=== PATIENT | female | born 1950 | race Caucasian/White ===

== ENCOUNTER 2021-02-20 09:24 | Observation (INO) | payer MEDICARE, OTHER ==
[2021-02-20] MEDS ORDERED: ALBUTEROL HFA INHALER INHALATION STA (09:41)
--- NOTE | 2021-02-20 09:44 | ED ---
General Adult HPI - General Chief complaint: Shortness of Breath Stated complaint: Chest Pain/DALY Time Seen by Provider: 02/20/21 09:25 Source: patient, RN notes reviewed, old records reviewed Mode of arrival: wheelchair Limitations: no limitations - History of Present Illness Initial comments: This is a 70-year-old female presents emergency department stating that she is here because of shortness of breath for the last 3 weeks. Patient states she's also had chest heaviness since Tuesday. Patient states she has a history of smoking but did quit 10 years ago. Patient states she did get the COVID vaccine but is never been diagnosed with COVID. Patient denies any swelling to the legs or calf tenderness. Patient denies any palpitations. Patient denies lightheadedness or dizziness. Patient denies any abdominal pain patient denies nausea vomiting diarrhea. Patient states the difficulty breathing gets much worse with any exertion. Patient states she did have a cough about a week ago but hasn't been coughing much recently. - Related Data Home Medications Medication Instructions Recorded Confirmed Carvedilol [Coreg] 3.125 mg PO BID 02/20/21 02/20/21 Dexlansoprazole [Dexilant] 60 mg PO DAILY 02/20/21 02/20/21 Healthy Legs And Feet (Otc) 1 tab PO BID 02/20/21 02/20/21 Meloxicam [Mobic] 7.5 mg PO BID 02/20/21 02/20/21 Potassium Chloride [Potassium 10 meq PO DAILY 02/20/21 02/20/21 Chloride ER] Rosuvastatin Calcium 5 mg PO HS 02/20/21 02/20/21 hydroCHLOROthiazide [Hydrodiuril] 25 mg PO DAILY 02/20/21 02/20/21 traZODone HCL 100 mg PO HS 02/20/21 02/20/21 Allergies Allergy/AdvReac Type Severity Reaction Status Date / Time No Known Allergies Allergy Verified 02/20/21 10:55 Review of Systems ROS Statement: Those systems with pertinent positive or pertinent negative responses have been documented in the HPI. ROS Other: All systems not noted in ROS Statement are negative. Past Medical History Past Medical History: Chest Pain / Angina History of Any Multi-Drug Resistant Organisms: None Reported Past Surgical History: Cholecystectomy Additional Past Surgical History / Comment(s): colonoscopy Past Psychological History: No Psychological Hx Reported Smoking Status: Never smoker Past Alcohol Use History: None Reported Past Drug Use History: None Reported General Exam - General Exam Comments Initial Comments: GENERAL: Patient is well-developed and well-nourished. Patient is nontoxic and well- hydrated and is in mild distress. ENT: Neck is soft and supple. No significant lymphadenopathy is noted. Oropharynx is clear. Moist mucous membranes. Neck has full range of motion without eliciting any pain. EYES: The sclera were anicteric and conjunctiva were pink and moist. Extraocular movements were intact and pupils were equal round and reactive to light. Eyelids were unremarkable. PULMONARY: Patient has expiratory wheezing CARDIOVASCULAR: There is a regular rate and rhythm without any murmurs gallops or rubs. ABDOMEN: Soft and nontender with normal bowel sounds. SKIN: Skin is clear with no lesions or rashes and otherwise unremarkable. NEUROLOGIC: Patient is alert and oriented x3. Cranial nerves II through XII are grossly intact. Motor and sensory are also intact. Normal speech, volume and content. Symmetrical smile. Cerebellar exam grossly intact. MUSCULOSKELETAL: Normal extremities with adequate strength and full range of motion. No lower extremity swelling or edema. No calf tenderness. LYMPHATICS: No significant lymphadenopathy is noted PSYCHIATRIC: Normal psychiatric evaluation. Normal interpersonal interactions appears functionally intact in deals appropriately with others. No signs of depression. No signs of anxiety. Limitations: no limitations Course Vital Signs 02/20/21 02/20/21 02/20/21 09:24 12:25 13:41 Temperature 97.9 F Pulse Rate 80 77 86 Respiratory 20 18 Rate Blood Pressure 152/95 105/79 O2 Sat by Pulse 95 96 Oximetry 02/20/21 13:55 Temperature Pulse Rate 80 Respiratory Rate Blood Pressure O2 Sat by Pulse Oximetry Medical Decision Making - Medical Decision Making EKG shows normal sinus rhythm at 73 bpm [place] interval 152 QRS is 86 QT interval 362 QTC is 398. Patient's EKG shows no ST segment elevation or depression. Chest x-ray shows no acute abnormality. Patient received an albuterol treatments steroids and antibiotics. Patient was oxygenating at 94% on room air and ambulated without lowering her oxygen level. Patient's oxygenation dropped after she rested given another breathing treatment but she continued to drop down to 88% on room air so I admitted the patient. I spoke with Dr. Roy he agreed to admit the patient and the patient wrote admitting orders. - Lab Data Result diagrams: 02/20/21 10:13 02/20/21 10:13 Lab Results 02/20/21 02/20/21 02/20/21 Range/Units 10:13 10:13 10:13 WBC 7.8 (3.8-10.6) k/uL RBC 4.47 (3.80-5.40) m/uL Hgb 13.2 (11.4-16.0) gm/dL Hct 40.4 (34.0-46.0) % MCV 90.4 (80.0-100.0) fL MCH 29.5 (25.0-35.0) pg MCHC 32.7 (31.0-37.0) g/dL RDW 14.3 (11.5-15.5) % Plt Count 252 (150-450) k/uL MPV 8.7 Neutrophils % 72 % Lymphocytes % 17 % Monocytes % 4 % Eosinophils % 5 % Basophils % 1 % Neutrophils # 5.6 (1.3-7.7) k/uL Lymphocytes # 1.3 (1.0-4.8) k/uL Monocytes # 0.3 (0-1.0) k/uL Eosinophils # 0.4 (0-0.7) k/uL Basophils # 0.0 (0-0.2) k/uL PT 10.0 (9.0-12.0) sec INR 0.9 (<1.2) APTT 21.7 L (22.0-30.0) sec D-Dimer 0.53 (<0.60) mg/L FEU Sodium (137-145) mmol/L Potassium (3.5-5.1) mmol/L Chloride (98-107) mmol/L Carbon Dioxide (22-30) mmol/L Anion Gap mmol/L BUN (7-17) mg/dL Creatinine (0.52-1.04) mg/dL Est GFR (CKD-EPI)AfAm (>60 ml/min/1.73 sqM) Est GFR (CKD-EPI)NonAf (>60 ml/min/1.73 sqM) Glucose (74-99) mg/dL Plasma Lactic Acid Estuardo (0.7-2.0) mmol/L Calcium (8.4-10.2) mg/dL Total Bilirubin (0.2-1.3) mg/dL AST (14-36) U/L ALT (4-34) U/L Alkaline Phosphatase (38-126) U/L Troponin I (0.000-0.034) ng/mL NT-Pro-B Natriuret Pep pg/mL Total Protein (6.3-8.2) g/dL Albumin (3.5-5.0) g/dL Urine Color Urine Appearance (Clear) Urine pH (5.0-8.0) Ur Specific [place] (1.001-1.035) Urine Protein (Negative) Urine Glucose (UA) (Negative) Urine Ketones (Negative) Urine Blood (Negative) Urine Nitrite (Negative) Urine Bilirubin (Negative) Urine Urobilinogen (<2.0) mg/dL Ur Leukocyte Esterase (Negative) Coronavirus (PCR) Not Detected (Not Detectd) 02/20/21 02/20/21 02/20/21 Range/Units 10:13 10:13 10:13 WBC (3.8-10.6) k/uL RBC (3.80-5.40) m/uL Hgb (11.4-16.0) gm/dL Hct (34.0-46.0) % MCV (80.0-100.0) fL MCH (25.0-35.0) pg MCHC (31.0-37.0) g/dL RDW (11.5-15.5) % Plt Count (150-450) k/uL MPV Neutrophils % % Lymphocytes % % Monocytes % % Eosinophils % % Basophils % % Neutrophils # (1.3-7.7) k/uL Lymphocytes # (1.0-4.8) k/uL Monocytes # (0-1.0) k/uL Eosinophils # (0-0.7) k/uL Basophils # (0-0.2) k/uL PT (9.0-12.0) sec INR (<1.2) APTT (22.0-30.0) sec D-Dimer (<0.60) mg/L FEU Sodium 137 (137-145) mmol/L Potassium 4.1 (3.5-5.1) mmol/L Chloride 97 L (98-107) mmol/L Carbon Dioxide 30 (22-30) mmol/L Anion Gap 10 mmol/L BUN 16 (7-17) mg/dL Creatinine 0.63 (0.52-1.04) mg/dL Est GFR (CKD-EPI)AfAm >90 (>60 ml/min/1.73 sqM) Est GFR (CKD-EPI)NonAf 90 (>60 ml/min/1.73 sqM) Glucose 161 H (74-99) mg/dL Plasma Lactic Acid Estuardo 1.2 (0.7-2.0) mmol/L Calcium 10.0 (8.4-10.2) mg/dL Total Bilirubin 0.3 (0.2-1.3) mg/dL AST 39 H (14-36) U/L ALT 44 H (4-34) U/L Alkaline Phosphatase 87 (38-126) U/L Troponin I <0.012 (0.000-0.034) ng/mL NT-Pro-B Natriuret Pep pg/mL Total Protein 7.1 (6.3-8.2) g/dL Albumin 4.0 (3.5-5.0) g/dL Urine Color Urine Appearance (Clear) Urine pH (5.0-8.0) Ur Specific [place] (1.001-1.035) Urine Protein (Negative) Urine Glucose (UA) (Negative) Urine Ketones (Negative) Urine Blood (Negative) Urine Nitrite (Negative) Urine Bilirubin (Negative) Urine Urobilinogen (<2.0) mg/dL Ur Leukocyte Esterase (Negative) Coronavirus (PCR) (Not Detectd) 02/20/21 02/20/21 Range/Units 10:13 13:16 WBC (3.8-10.6) k/uL RBC (3.80-5.40) m/uL Hgb (11.4-16.0) gm/dL Hct (34.0-46.0) % MCV (80.0-100.0) fL MCH (25.0-35.0) pg MCHC (31.0-37.0) g/dL RDW (11.5-15.5) % Plt Count (150-450) k/uL MPV Neutrophils % % Lymphocytes % % Monocytes % % Eosinophils % % Basophils % % Neutrophils # (1.3-7.7) k/uL Lymphocytes # (1.0-4.8) k/uL Monocytes # (0-1.0) k/uL Eosinophils # (0-0.7) k/uL Basophils # (0-0.2) k/uL PT (9.0-12.0) sec INR (<1.2) APTT (22.0-30.0) sec D-Dimer (<0.60) mg/L FEU Sodium (137-145) mmol/L Potassium (3.5-5.1) mmol/L Chloride (98-107) mmol/L Carbon Dioxide (22-30) mmol/L Anion Gap mmol/L BUN (7-17) mg/dL Creatinine (0.52-1.04) mg/dL Est GFR (CKD-EPI)AfAm (>60 ml/min/1.73 sqM) Est GFR (CKD-EPI)NonAf (>60 ml/min/1.73 sqM) Glucose (74-99) mg/dL Plasma Lactic Acid Estuardo (0.7-2.0) mmol/L Calcium (8.4-10.2) mg/dL Total Bilirubin (0.2-1.3) mg/dL AST (14-36) U/L ALT (4-34) U/L Alkaline Phosphatase (38-126) U/L Troponin I (0.000-0.034) ng/mL NT-Pro-B Natriuret Pep 123 pg/mL Total Protein (6.3-8.2) g/dL Albumin (3.5-5.0) g/dL Urine Color Yellow Urine Appearance Clear (Clear) Urine pH 7.5 (5.0-8.0) Ur Specific [place] 1.009 (1.001-1.035) Urine Protein Negative (Negative) Urine Glucose (UA) Negative (Negative) Urine Ketones Negative (Negative) Urine Blood Negative (Negative) Urine Nitrite Negative (Negative) Urine Bilirubin Negative (Negative) Urine Urobilinogen <2.0 (<2.0) mg/dL Ur Leukocyte Esterase Negative (Negative) Coronavirus (PCR) (Not Detectd) Disposition Clinical Impression: Acute exacerbation of chronic obstructive pulmonary disease Disposition: ADMITTED IP TO THIS HOSP Referrals: Nonstaff,Physician [Primary Care Provider] - 1-2 days Time of Disposition: 13:07
[2021-02-20 10:40] LABS: Basophils % (A) 1 %; Eosinophils # (A) 0.4 k/uL (0-0.7); Eosinophils % (A) 5 %; HCT 40.4 % (34.0-46.0); HGB 13.2 gm/dL (11.4-16.0); Lymphocytes # (A) 1.3 k/uL (1.0-4.8); Lymphocytes % (A) 17 %; MCH 29.5 pg (25.0-35.0); MCHC 32.7 g/dL (31.0-37.0); MCV 90.4 fL (80.0-100.0); Mean Platelet Volume 8.7; Monocytes # (A) 0.3 k/uL (0-1.0); Monocytes % (A) 4 %; Neutrophils # (A) 5.6 k/uL (1.3-7.7); Neutrophils % (A) 72 %; Platelet Count 252 k/uL (150-450); RBC 4.47 m/uL (3.80-5.40); RDW 14.3 % (11.5-15.5); WBC 7.8 k/uL (3.8-10.6)
[2021-02-20 10:51] LABS: ALT 44 U/L (4-34); AST 39 U/L (14-36); African American GFR (CKD) >90 (>60 ml/min/1.73 sqM); Alkaline Phosphatase 87 U/L (38-126); Anion Gap 10 mmol/L; Blood Urea Nitrogen 16 mg/dL (7-17); Carbon Dioxide 30 mmol/L (22-30); Chloride 97 mmol/L (98-107); Glucose 161 mg/dL (74-99); Non-African American GFR(CKD) 90 (>60 ml/min/1.73 sqM); Potassium 4.1 mmol/L (3.5-5.1); Sodium 137 mmol/L (137-145); Total Bilirubin 0.3 mg/dL (0.2-1.3); Total Protein 7.1 g/dL (6.3-8.2)
[2021-02-20 11:03] LABS: INR 0.9 (<1.2)
[2021-02-20 11:13] LABS: Partial Thromboplastin Time 21.7 sec (22.0-30.0)
--- NOTE | 2021-02-20 12:10 | XR ---
EXAMINATION TYPE: XR chest 2V DATE OF EXAM: 02/20/2021 COMPARISON: None HISTORY: 70 year-old female shortness of breath, difficulty breathing TECHNIQUE: PA and lateral views FINDINGS: Heart appears mildly enlarged. Rightward patient rotation package wrapper myocardial mediastinal con tours. There is focal opacity at the medial right base. No pleural effusion. Cholecystectomy clips on the lateral view. IMPRESSION: 1. Rotated exam. There is mild cardiomegaly. 2. Focal patchy atelectasis versus early infiltrate at the medial right base.
[2021-02-20] MEDS ORDERED: methylPREDNISolone SOD SUCCI 125 MG/2 ML VIAL IV STA (12:33)
[2021-02-20] MEDS ORDERED: cefTRIAXone IN SWFI 1,000 MG/10 ML SYRINGE IVP STA (12:33)
[2021-02-20] MEDS ORDERED: IPRATROPIUM-ALBUTEROL 3 ML NEB INHALATION STA (13:18)
[2021-02-20 13:45] LABS: Appearance,Urine Clear (Clear); Bilirubin,Urine Negative (Negative); Blood,Urine Negative (Negative); Color,Urine Yellow; Glucose,Urine (UA) Negative (Negative); Ketones,Urine Negative (Negative); Leukocyte Esterase,Urine Negative (Negative); Nitrite,Urine Negative (Negative); PH, Urine 7.5 (5.0-8.0); Protein,Urine Negative (Negative); Specific Gravity,Urine 1.009 (1.001-1.035); Urobilinogen,Urine <2.0 mg/dL (<2.0)
--- NOTE | 2021-02-20 15:28 | P.HPIM ---
History of Present Illness H&P Date: 02/20/21 The patient is a 70-year-old female with a PMH of hypertension, hyperlipidemia and distant history of tobacco abuse (patient used to smoke as a teenager and smoked for roughly 10 years and never more than a few cigarettes a day) who presents to the emergency room with complaints of chest discomfort and shortness of breath. The patient reports that over the past 2 weeks, she has noticed gradually worsening exertional dyspnea, with associated exertional substernal pressure-like chest discomfort. She notes that the chest discomfort is nonradiating, 10 out of 10 at exertion, alleviates quickly with rest, without associated palpitations, nausea, vomiting, diaphoresis. She also reports gradually worsening lower extremity edema and gaining roughly 25 pounds over the past 2-3 weeks. She denied any history of heart disease. She also denied any history of COPD or having to use inhalers in the past. Denied cough, fever, chills, sick contacts. Reports that the breathing treatments in the emergency room did not really alleviate her symptoms. In the emergency room, chest x-ray revealed mild cardiomegaly with EKG showing normal sinus rhythm at 73 bpm with no acute ST/T-wave changes noted as reviewed by me. Laboratory evaluation was remarkable for troponin less than 0.012, proBNP 123, AST 39, ALT 44, UA unremarkable, coronavirus PCR negative, glucose 161, d-dimer 0.53, AST 39, ALT 44. Review of systems: Pertinent positives and negatives as discussed in HPI, a complete review of sys tems was performed and all other systems are negative. Physical examination: General: non toxic, no distress, appears at stated age, obese Derm: no unusual rashes/lesions no unusual ecchymoses, warm, dry Head: atraumatic, normocephalic, symmetric Eyes: EOMI, no lid lag, anicteric sclera, pupils equal round reactive to light ENT: Nose and ears atraumatic, no thrush, no pharyngeal erythema Neck: No thyromegaly, no cervical lymphadenopathy, trachea midline, supple Mouth: no lip lesion, mucus membranes moist Cardiovascular: S1S2 reg, no murmur, positive posterior tibial pulse bilateral, 1+ bilateral lower extremity pitting edema, capillary refill less than 2 seconds Lungs: Bibasilar rales, no wheezing, no accessory muscle use Abdominal: soft, nontender to palpation, no guarding, no appreciable organomegaly, normal bowel sounds Ext: no gross muscle atrophy, muscle strength 5 out of 5 in all 4 extremities grossly, no contractures, Neuro: CN II-XI grossly intact, light touch intact all 4 extremities, finger to nose within normal limits, Psych: Alert, oriented, appropriate affect Assessment/plan Shortness of breath, suspected cardiac in nature -proBNP wnl -Obtain echocardiogram -Cardiac monitoring -Cardiology consult -Intake output -Daily weights -Lasix IV for now Hyperglycemia -Check A1c Abnormal LFTs -May be secondary to congestion from fluid overload -Monitor for now Chronic conditions: Hyperlipidemia, hypertension -Continue with home meds DVT prophylaxis -Heparin subcu The patient is admitted with an anticipated greater than 2 midnight stay for evaluation of SOB CODE STATUS: Full Code Discussed with: Patient Anticipated discharge date: 2-[address]: Home Past Medical History Past Medical History: Chest Pain / Angina History of Any Multi-Drug Resistant Organisms: None Reported Past Surgical History: Cholecystectomy Additional Past Surgical History / Comment(s): colonoscopy Past Psychological History: No Psychological Hx Reported Smoking Status: Never smoker Past Alcohol Use History: None Reported Past Drug Use History: None Reported - Past Family History Father Family Medical History: Cancer Medications and Allergies Home Medications Medication Instructions Recorded Confirmed Type Carvedilol [Coreg] 3.125 mg PO BID 02/20/21 02/20/21 History Dexlansoprazole [Dexilant] 60 mg PO DAILY 02/20/21 02/20/21 History Healthy Legs And Feet (Otc) 1 tab PO BID 02/20/21 02/20/21 History Meloxicam [Mobic] 7.5 mg PO BID 02/20/21 02/20/21 History Potassium Chloride [Potassium 10 meq PO DAILY 02/20/21 02/20/21 History Chloride ER] Rosuvastatin Calcium 5 mg PO HS 02/20/21 02/20/21 History hydroCHLOROthiazide [Hydrodiuril] 25 mg PO DAILY 02/20/21 02/20/21 History traZODone HCL 100 mg PO HS 02/20/21 02/20/21 History Allergies Allergy/AdvReac Type Severity Reaction Status Date / Time No Known Allergies Allergy Verified 02/20/21 10:55 Physical Exam Vitals: Vital Signs Temp Pulse Resp BP Pulse Ox 02/20/21 14:52 82 18 160/91 97 11/12/21 13:55 80 02/20/21 13:41 86 02/20/21 12:25 77 18 105/79 96 02/20/21 09:24 97.9 F 80 20 152/95 95 Intake and Output 02/20/21 02/20/21 02/20/21 06:59 14:59 22:59 Other: Weight 99.79 kg Results CBC & Chem 7: 02/20/21 10:13 02/20/21 10:13 Labs: Abnormal Lab Results - Last 24 Hours (Table) 02/20/21 02/20/21 Range/Units 10:13 10:13 APTT 21.7 L (22.0-30.0) sec Chloride 97 L (98-107) mmol/L Glucose 161 H (74-99) mg/dL AST 39 H (14-36) U/L ALT 44 H (4-34) U/L
--- NOTE | 2021-02-20 17:28 | ECHOF ---
Referral Reason: MEASUREMENTS -------- HEIGHT: 160.0 cm WEIGHT: 99.8 kg BP: RVIDd: 2.6 cm (< 3.3) IVSd: 1.1 cm (0.6 - 1.1) LVIDd: 4.6 cm (3.9 - 5.3) LVPWd: 1.0 cm (0.6 - 1.1) IVSs: 1.8 cm LVIDs: 2.1 cm LVPWs: 1.5 cm Ao Diam: 3.2 cm (2.0 - 3.7) AV Cusp: 2.1 cm (1.5 - 2.6) LA Diam: 3.8 cm (2.7 - 3.8) MV EXCURSION: 10.955 mm (> 18.000) MV EF SLOPE: 67 mm/s (70 - 150) EPSS: 0.7 cm MV E Jori: 0.69 m/s MV DecT: 160 ms MV A Jori: 1.09 m/s MV E/A Ratio: 0.63 RAP: 5.00 mmHg RVSP: 13.64 mmHg FINDINGS -------- Sinus rhythm. This was a technically difficult study with suboptimal views. The left ventricular size is normal. Left ventricular wall thickness is normal. Overall left vent ricular systolic function is normal with, an EF between 55 - 60 %. The right ventricle is normal in size. The left atrial size is normal. The right atrial size is normal. The aortic valve was not well visualized. The mitral valve was not well visualized. Mild mitral regurgitation is present. The tricuspid valve was not well visualized. Mild tricuspid regurgitation present. Right ventricu lar systolic pressure is normal at < 35 mmHg. The pulmonic valve was not well visualized. There is no pulmonic regurgitation present. The aortic root size is normal. IVC Not well visulized. There is no pericardial effusion. CONCLUSIONS -------- 1. This was a technically difficult study with suboptimal views. 2. Left ventricular wall thickness is normal. 3. Overall left ventricular systolic function is normal with, an EF between 55 - 60 %. 4. Mild mitral regurgitation is present. 5. Mild tricuspid regurgitation present. 6. There is no pericardial effusion. ATTENDING UROLOGIST: Blessing Haywood RDCS
[2021-02-20] MEDS ORDERED: methylPREDNISolone SOD SUCCI 125 MG/2 ML VIAL IV SCH (18:00)
[2021-02-20] MEDS: IPRATROPIUM-ALBUTEROL 3 ML NEB INHALATION PRN (19:48)
[2021-02-20] MEDS: IPRATROPIUM 0.5 MG/2.5 ML NEBU INHALATION SCH (19:49)
[2021-02-20] MEDS: HEPARIN SODIUM,PORCINE/PF 5,000 UNIT/0.5 ML SYRINGE SQ SCH (20:55)
[2021-02-20] MEDS: FUROSEMIDE 10 MG/ML 4 ML VIAL IV SCH (20:55)
[2021-02-20] MEDS: traZODone HCL 50 MG TAB PO SCH (21:47)
[2021-02-20] MEDS: ATORVASTATIN 10 MG TAB PO SCH (21:47)
[2021-02-20] MEDS: carvediloL 3.125 MG TAB PO SCH (21:47)
[2021-02-21] MEDS: HEPARIN SODIUM,PORCINE/PF 5,000 UNIT/0.5 ML SYRINGE SQ SCH ×4 (01:17→16:28)
[2021-02-21] MEDS: BENZONATATE 100 MG CAP PO PRN ×2 (03:36→21:44)
[2021-02-21] MEDS: FUROSEMIDE 10 MG/ML 4 ML VIAL IV SCH (03:42)
[2021-02-21] MEDS: AZITHROMYCIN 500 MG TAB PO SCH (09:12)
[2021-02-21] MEDS: hydroCHLOROthiazide 25 MG TAB PO SCH (09:14)
[2021-02-21] MEDS: carvediloL 3.125 MG TAB PO SCH ×2 (09:14→21:45)
[2021-02-21] MEDS: POTASSIUM CHLORIDE ER 10 MEQ TAB.ER.PRT PO SCH (09:14)
[2021-02-21] MEDS: IPRATROPIUM-ALBUTEROL 3 ML NEB INHALATION PRN ×3 (09:30→17:02)
[2021-02-21] MEDS: IPRATROPIUM 0.5 MG/2.5 ML NEBU INHALATION SCH ×4 (09:30→20:49)
--- NOTE | 2021-02-21 13:35 | P.PN ---
Subjective Patient was seen and evaluated by me today. She is still complaining of some shortness of breath. No acute events overnight. Objective - Vital Signs Vital signs: Vital Signs Temp 97.6 F 02/21/21 07:00 Pulse 88 02/21/21 09:43 Resp 20 02/21/21 07:00 BP 125/76 02/21/21 07:00 Pulse Ox 96 02/21/21 07:00 Intake & Output 02/20/21 02/21/21 02/21/21 18:59 06:59 18:59 Weight 99.79 kg 99.79 kg Other: # Voids 2 - Exam General: The patient is awake and alert, in no distress Eye: there is normal conjunctiva bilaterally. Neck: The neck is supple, there is no JVD. Cardiovascular: Normal S1-S2, no S3-S4, no murmurs. Respiratory: Lungs clear to auscultation bilaterally Gastrointestinal: Abdomen is soft, nontender Musculoskeletal: There is no pedal edema. Neurological:. Speech is normal. Skin: Skin is warm and dry - Labs CBC & Chem 7: 02/20/21 10:13 02/20/21 10:13 Assessment and Plan Assessment: This is a 70-year-old female with past medical history noted below the presented to the emergency room with worsening chest discomfort and shortness of breath. Patient was evaluated in the ER and admitted to the hospital for further management of her medical problems noted below. 1. Chest discomfort, ACS ruled out. Twelve-lead EKG showed no acute ischemic changes. Serial troponin negative. Echocardiogram showed preserved ejection fraction but poor visualization of the valves. Awaiting cardiology evaluation. 2. Chronic medical problems, hyperlipidemia, hypertension
[2021-02-21 13:53] LABS: ALT 41 U/L (8-44); AST 26 U/L (13-35); African American GFR (CKD) 91.3 (60.0-200.0); Albumin/Globulin Ratio 1.57 (1.60-3.17); Alkaline Phosphatase 87 U/L (41-126); BUN/Creat Ratio 24.04 Ratio (12.00-20.00); Blood Urea Nitrogen 18.2 mg/dL (9.0-27.0); Calcium 10.1 mg/dL (8.7-10.3); Carbon Dioxide 33.2 mmol/L (21.6-31.8); Chloride 95 mmol/L (96-109); Globulin 2.6 g/dL (1.6-3.3); Glucose 204 mg/dL (70-110); HCT 39.1 % (37.2-46.3); HGB 12.4 g/dL (12.0-15.0); MCH 28.3 pg (27.0-32.0); MCHC 31.7 g/dL (32.0-37.0); MCV 89.3 fL (80.0-97.0); Mean Platelet Volume 11.8 fL (9.5-12.2); Non-African American GFR(CKD) 78.7 (60.0-200.0); Platelet Count 259 X 10*3/uL (140-440); Potassium 4.2 mmol/L (3.5-5.5); RBC 4.38 X 10*6/uL (4.10-5.20); RDW 14.9 % (11.5-14.5); Sodium 139 mmol/L (135-145); Total Bilirubin <0.20 mg/dL (0.30-1.20); Total Protein 6.6 g/dL (6.2-8.2)
--- NOTE | 2021-02-21 15:02 | P.CRDCN ---
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 She states she has had exertional dyspnea and able to walk only a short distance, chest pain that is 10 out of 10 nonradiating, weight gain of 23 pounds and lower extremity edema. Patient also states she's been sleeping on 2 pillows. She states she saw her PCP on Tuesday was placed on Coreg which she started on Tuesday. She also has been taking Mucinex for the past month. She states she is coughing and it keeps her up all night, relates that she has had increase in anxiety. Patient is a nonsmoker. She denies diabetes. She does have a family history of mom with CVA at age 55 and from a myocardial infarction at age 60. EKG was in normal sinus rhythm with no acute ST changes. Chest x-ray reveals mild cardiomegaly. Focal patchy atelectasis versus early infiltrate in the medial right base. Echocardiogram reveals EF of 55-60% with mild mitral regurgitation, mild tricuspid regurgitation. CBC was unremarkable, d-dimer 0.53. Potassium 4.1. Lactic acid 1.2. Blood sugar 161. Troponin negative on 2 draws. AST 39 and ALT 44. BUN 16 and creatinine 0.63. Coated 19 PCR not detected. Patient has been on IV Lasix and she states she has had improvement of the lower extremity edema. REVIEW OF SYSTEMS Constitutional: No fever, no chills. No weakness, fatigue or lethargy. EENT: No headache. No dizziness. Lungs: No shortness of breath, cough, no sputum production. No wheezing. Cardiovascular: No chest pain, no lower extremity edema. No palpitations. No paroxysmal nocturnal dyspnea. No orthopnea. No lightheadedness or dizziness. No syncopal episodes. Abdominal: No abdominal pain. No nausea, vomiting. No diarrhea. No constipation. No bloody or tarry stools.. No loss of appetite. Genitourinary: No dysuria.. No urinary retention. Musculoskeletal: No myalgias. No muscle weakness, no gait dysfunction, no frequent falls. No back pain. No neck pain. Integumentary: No wounds, no lesions. No rash or pruritus. No unusual bruising. Neurologic: No aphasia. No facial droop. No change in mentation. No head injury. No headache. No paralysis. No paresthesia. Psychiatric: No depression. No anxiety. Endocrine: No abnormal blood sugars. PHYSICAL EXAMINATION Gen: This is a 70-year-old obese female. She is resting sitting on edge of the bed and appears to be in no acute distress. No respiratory distress is noted. VS: Afebrile, heart rate 72, blood pressure 125/76, pulse ox 96% on 2 L nasal cannula. HEENT: Head is atraumatic, normocephalic. Pupils equal, round. Sclerae is anicteric. NECK: Supple. No JVD. No lymphadenopathy. No thyromegaly. LUNGS: Clear to auscultation. No wheezes or rhonchi. No intercostal retractions. HEART: Regular rate and rhythm. No murmur. ABDOMEN: Soft. Bowel sounds are present. No masses. No tenderness. EXTREMITIES: No pedal edema. No calf tenderness. NEUROLOGICAL: Patient is awake, alert and oriented x3. Cranial nerves 2 through 12 are grossly intact. ASSESSMENT Chest discomfort, acute coronary syndrome ruled out Right sided pneumonia Hyperglycemia Hypertension Hyperlipidemia PLAN Change IV Lasix to oral 40 mg daily Continue treatment for pneumonia Patient given option of having stress test on Tuesday or following up as an outpatient. Patient verbalizes that she would like to stay and have stress test done on Tuesday. Continue Coreg Further recommendations to follow based upon clinical course Thank you kindly for this consultation. Nurse practitioner note has been reviewed, I agree with documented findings and plan of care. Patient was seen and examined. Past Medical History Past Medical History: Chest Pain / Angina History of Any Multi-Drug Resistant Organisms: None Reported Past Surgical History: Cholecystectomy Additional Past Surgical History / Comment(s): colonoscopy Past Anesthesia/Blood Transfusion Reactions: No Reported Reaction Past Psychological History: No Psychological Hx Reported Smoking Status: Never smoker Past Alcohol Use History: None Reported Past Drug Use History: None Reported - Past Family History Father Family Medical History: Cancer Medications and Allergies Home Medications Medication Instructions Recorded Confirmed Type Carvedilol [Coreg] 3.125 mg PO BID 02/20/21 02/20/21 History Dexlansoprazole [Dexilant] 60 mg PO DAILY 02/20/21 02/20/21 History Healthy Legs And Feet (Otc) 1 tab PO BID 02/20/21 02/20/21 History Meloxicam [Mobic] 7.5 mg PO BID 02/20/21 02/20/21 History Potassium Chloride [Potassium 10 meq PO DAILY 02/20/21 02/20/21 History Chloride ER] Rosuvastatin Calcium 5 mg PO HS 02/20/21 02/20/21 History hydroCHLOROthiazide [Hydrodiuril] 25 mg PO DAILY 02/20/21 02/20/21 History traZODone HCL 100 mg PO HS 02/20/21 02/20/21 History Allergies Allergy/AdvReac Type Severity Reaction Status Date / Time No Known Allergies Allergy Verified 02/20/21 10:55 Physical Exam Vitals: Vital Signs Temp Pulse Pulse Pulse Resp BP BP 02/21/21 09:43 88 02/21/21 09:31 88 02/21/21 07:00 97.6 F 72 20 125/76 02/21/21 02:00 97.9 F 68 18 107/60 02/20/21 23:20 97.7 F 95 18 126/78 02/20/21 20:03 96 02/20/21 19:51 96 20 126/68 02/20/21 19:50 97 02/20/21 14:52 82 18 160/91 02/20/21 13:55 80 02/20/21 13:41 86 02/20/21 12:25 77 18 105/79 Pulse Ox 02/21/21 09:43 02/21/21 09:31 02/21/21 07:00 96 02/21/21 02:00 93 L 02/20/21 23:20 95 02/20/21 20:03 02/20/21 19:51 98 02/20/21 19:50 02/20/21 14:52 97 02/20/21 13:55 02/20/21 13:41 02/20/21 12:25 96 Intake and Output 02/20/21 02/21/21 02/21/21 22:59 06:59 14:59 Other: # Voids 2 Weight 99.79 kg Results 02/21/21 06:27 02/21/21 06:27 Cardiac Enzymes 02/20/21 02/20/21 Range/Units 10:13 10:13 AST 39 H (14-36) U/L Troponin I <0.012 (0.000-0.034) ng/mL Coagulation 02/20/21 Range/Units 10:13 PT 10.0 (9.0-12.0) sec APTT 21.7 L (22.0-30.0) sec CBC 02/20/21 Range/Units 10:13 WBC 7.8 (3.8-10.6) k/uL RBC 4.47 (3.80-5.40) m/uL Hgb 13.2 (11.4-16.0) gm/dL Hct 40.4 (34.0-46.0) % Plt Count 252 (150-450) k/uL Comprehensive Metabolic Panel 02/20/21 Range/Units 10:13 Sodium 137 (137-145) mmol/L Potassium 4.1 (3.5-5.1) mmol/L Chloride 97 L (98-107) mmol/L Carbon Dioxide 30 (22-30) mmol/L BUN 16 (7-17) mg/dL Creatinine 0.63 (0.52-1.04) mg/dL Glucose 161 H (74-99) mg/dL Calcium 10.0 (8.4-10.2) mg/dL AST 39 H (14-36) U/L ALT 44 H (4-34) U/L Alkaline Phosphatase 87 (38-126) U/L Total Protein 7.1 (6.3-8.2) g/dL Albumin 4.0 (3.5-5.0) g/dL Current Medications Generic Name Dose Route Start Last Admin Trade Name Freq PRN Reason Stop Dose Admin Albuterol/Ipratropium 3 ml 02/20/21 14:48 02/21/21 09:30 Ipratropium-Albuterol 3 Ml Neb INHALATION 3 ml RT-Q4H PRN Administration Shortness Of Breath Or Wheezing Atorvastatin Calcium 10 mg 02/20/21 21:00 02/20/21 21:47 Atorvastatin 10 Mg Tab PO 10 mg HS DU Administration Azithromycin 500 mg 02/21/21 09:00 02/21/21 09:12 Azithromycin 500 Mg Tab PO 500 mg DAILY DU Administration Benzonatate 200 mg 02/21/21 05:00 02/21/21 03:36 Benzonatate 100 Mg Cap PO 200 mg TID PRN Administration Cough Carvedilol 3.125 mg 02/20/21 21:00 02/21/21 09:14 Carvedilol 3.125 Mg Tab PO 3.125 mg BID DU Administration Furosemide 40 mg 02/20/21 15:30 02/21/21 03:42 Furosemide 10 Mg/Ml 4 Ml Vial IV Not Given Q12H DU Heparin Sodium (Porcine) 5,000 unit 02/20/21 16:00 02/21/21 09:11 Heparin Sodium,Porcine/Pf 5,000 Unit/0.5 Ml Syringe SQ 5,000 unit Q8HR DU Administration Hydrochlorothiazide 25 mg 02/21/21 09:00 02/21/21 09:14 Hydrochlorothiazide 25 Mg Tab PO 25 mg DAILY DU Administration Ipratropium [place] 0.5 mg 02/20/21 16:00 02/21/21 09:30 Ipratropium 0.5 Mg/2.5 Ml Nebu INHALATION Not Given RT-QID DU Potassium Chloride 10 meq 02/21/21 09:00 02/21/21 09:14 Potassium Chloride Er 10 Meq Tab.Er.Prt PO 10 meq DAILY DU Administration Trazodone HCl 100 mg 02/20/21 21:00 02/20/21 21:47 Trazodone Hcl 50 Mg Tab PO 100 mg HS DU Administration Intake and Output 02/20/21 02/21/21 02/21/21 22:59 06:59 14:59 Other: # Voids 2 Weight 99.79 kg 02/20/21 10:13 02/20/21 10:13
[2021-02-21] MEDS: ATORVASTATIN 10 MG TAB PO SCH (21:45)
[2021-02-21] MEDS: traZODone HCL 50 MG TAB PO SCH (21:45)
[2021-02-22] MEDS: HEPARIN SODIUM,PORCINE/PF 5,000 UNIT/0.5 ML SYRINGE SQ SCH ×2 (00:04→09:20)
[2021-02-22] MEDS: IPRATROPIUM-ALBUTEROL 3 ML NEB INHALATION PRN ×3 (00:29→12:57)
[2021-02-22 08:45] VITALS: BP 116/81; RESP 20; TEMP 97.5
[2021-02-22] MEDS ORDERED: FUROSEMIDE 40 MG TAB PO SCH (09:00)
[2021-02-22] MEDS: IPRATROPIUM 0.5 MG/2.5 ML NEBU INHALATION SCH ×2 (09:18→12:57)
[2021-02-22] MEDS: hydroCHLOROthiazide 25 MG TAB PO SCH (09:19)
[2021-02-22] MEDS: AZITHROMYCIN 500 MG TAB PO SCH (09:20)
[2021-02-22] MEDS: POTASSIUM CHLORIDE ER 10 MEQ TAB.ER.PRT PO SCH (09:20)
[2021-02-22] MEDS: carvediloL 3.125 MG TAB PO SCH (09:20)
[2021-02-22 09:21] VITALS: PULSE 88
--- NOTE | 2021-02-22 11:56 | P.DS ---
Providers Date of admission: 02/20/21 14:49 Expected date of discharge: 02/22/21 Attending physician: Tyler Roy MD Consults: 02/20/21 15:26 Consult Physician Urgent Consulting Provider: Haja Celestin Consult Reason/Comments: unstable angina Do you want consulting provider notified?: Yes Primary care physician: Physician Nonstaff Hospital Course: This is a 70-year-old female with past medical history noted below the presented to the emergency room with worsening chest discomfort and shortness of breath. Patient was evaluated in the ER and admitted to the hospital for further management of her medical problems noted below. 1. Chest discomfort, ACS ruled out. Twelve-lead EKG showed no acute ischemic changes. Serial troponin negative. Echocardiogram showed preserved ejection fraction but poor visualization of the valves. Chest x-ray was unremarkable. 2. Chronic medical problems, hyperlipidemia, hypertension On the day of discharge, patient was able to ambulate down the hallway with no shortness of breath or evidence of desaturation. She was seen and evaluated by cardiology. Plan to schedule cardiac stress test outpatient. Patient will be discharged home in a stable condition. Physical exam: General: The patient is awake and alert, in no distress Eye: there is normal conjunctiva bilaterally. Neck: The neck is supple, there is no JVD. Cardiovascular: Normal S1-S2, no S3-S4, no murmurs. Respiratory: Lungs clear to auscultation bilaterally Gastrointestinal: Abdomen is soft, nontender Musculoskeletal: There is no pedal edema. Neurological:. Speech is normal. Skin: Skin is warm and dry Plan - Discharge Summary Discharge Rx Participant: No New Discharge Prescriptions: Continue Potassium Chloride [Potassium Chloride ER] 10 meq PO DAILY Meloxicam [Mobic] 7.5 mg PO BID Healthy Legs And Feet (Otc) 1 tab PO BID Dexlansoprazole [Dexilant] 60 mg PO DAILY traZODone HCL 100 mg PO HS Rosuvastatin Calcium 5 mg PO HS hydroCHLOROthiazide [Hydrodiuril] 25 mg PO DAILY Carvedilol [Coreg] 3.125 mg PO BID Discharge Medication List Carvedilol [Coreg] 3.125 mg PO BID 02/20/21 [History] Dexlansoprazole [Dexilant] 60 mg PO DAILY 02/20/21 [History] Healthy Legs And Feet (Otc) 1 tab PO BID 02/20/21 [History] Meloxicam [Mobic] 7.5 mg PO BID 02/20/21 [History] Potassium Chloride [Potassium Chloride ER] 10 meq PO DAILY 02/20/21 [History] Rosuvastatin Calcium 5 mg PO HS 02/20/21 [History] hydroCHLOROthiazide [Hydrodiuril] 25 mg PO DAILY 02/20/21 [History] traZODone HCL 100 mg PO HS 02/20/21 [History] Follow up Appointment(s)/Referral(s): Nonstaff,Physician [Primary Care Provider] - 1-2 days
--- NOTE | 2021-02-22 14:20 | P.PN ---
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 She states she has had exertional dyspnea and able to walk only a short distance, chest pain that is 10 out of 10 nonradiating, weight gain of 23 pounds and lower extremity edema. Patient also states she's been sleeping on 2 pillows. She states she saw her PCP on Tuesday was placed on Coreg which she started on Tuesday. She also has been taking Mucinex for the past month. She states she is coughing and it keeps her up all night, relates that she has had increase in anxiety. Patient is a nonsmoker. She denies diabetes. She does have a family history of mom with CVA at age 55 and from a [facility] 60. EKG was in normal sinus rhythm with no acute ST changes. Chest x-ray reveals mild cardiomegaly. Focal patchy atelectasis versus early infiltrate in the medial right base. Echocardiogram reveals EF of 55-60% with mild mitral regurgitation, mild tricuspid regurgitation. CBC was unremarkable, d-dimer 0.53. Potassium 4.1. Lactic acid 1.2. Blood sugar 161. Troponin negative on 2 draws. AST 39 and ALT 44. BUN 16 and creatinine 0.63. Coated 19 PCR not detected. Patient has been on IV Lasix and she states she has had improvement of the lower extremity edema. 02/22/2021: Patient denies any chest pain or shortness of breath at this time. Her exertional dyspnea is much improved, lower extremity edema is improved. Yesterday, Lasix was transitioned to oral. Patient will be scheduled for Lexiscan stress test with some clear patient was to go home instead. Patient may have this done as an outpatient and follow-up if this is abnormal. PHYSICAL EXAMINATION Gen: This is a 70-year-old obese female. She is resting sitting on edge of the bed and appears to be in no acute distress. No respiratory distress is noted. VS: Afebrile, heart rate 88, blood pressure 116/81, pulse ox 93% on 2 L nasal cannula. HEENT: Head is atraumatic, normocephalic. Pupils equal, round. Sclerae is anicteric. NECK: Supple. No JVD. No lymphadenopathy. No thyromegaly. LUNGS: Clear to auscultation. No wheezes or rhonchi. No intercostal retractions. HEART: Regular rate and rhythm. No murmur. ABDOMEN: Soft. Bowel sounds are present. No masses. No tenderness. EXTREMITIES: No pedal edema. No calf tenderness. NEUROLOGICAL: Patient is awake, alert and oriented x3. Cranial nerves 2 through 12 are grossly intact. ASSESSMENT Chest discomfort, acute coronary syndrome ruled out Right sided pneumonia Hyperglycemia Hypertension Hyperlipidemia PLAN Lasix oral 40 mg daily Continue treatment for pneumonia Lexiscan stress test as an outpatient. Continue Coreg Thank you kindly for this consultation. Nurse practitioner note has been reviewed, I agree with documented findings and plan of care. Patient was seen and examined. Objective - Vital Signs Vital signs: Vital Signs Temp 97.5 F L 02/22/21 07:00 Pulse 88 02/22/21 09:33 Resp 20 02/22/21 08:00 BP 116/81 02/22/21 07:00 Pulse Ox 93 L 02/22/21 07:00 Intake & Output 02/21/21 02/22/21 02/22/21 18:59 06:59 18:59 Intake Total 222 Balance 222 Weight 99.6 kg Intake: Oral 222 Other: # Voids 1 2 - Labs CBC & Chem 7: 02/21/21 06:27 02/21/21 06:27 Labs: Abnormal Lab Results - Last 24 Hours (Table) 02/21/21 02/21/21 Range/Units 06:27 06:27 WBC 11.00 H (4.50-10.00) X 10*3/uL MCHC 31.7 L (32.0-37.0) g/dL RDW 14.9 H (11.5-14.5) % Chloride 95 L (96-109) mmol/L Carbon Dioxide 33.2 H (21.6-31.8) mmol/L BUN/Creatinine Ratio 24.04 H (12.00-20.00) Ratio Glucose 204 H (70-110) mg/dL Total Bilirubin <0.20 L (0.30-1.20) mg/dL Albumin/Globulin Ratio 1.57 L (1.60-3.17) g/dL
[2021-02-23] MEDS ORDERED: AMINOPHYLLINE 500 MG/20 ML VIAL IV PRN (06:00)
[2021-02-23] MEDS ORDERED: REGADENOSON 0.4 MG/5 ML SYRINGE IV PRN (06:00)
[2021-02-23] MEDS ORDERED: CAFFEINE CITRATE 60 MG/3 ML VIAL IV PRN (06:00)
--- NOTE | 2021-02-27 07:40 | CDI ---
Dear Dr. Brian, In the Emergency Room, clinical impression of acute exacerbation of Chronic Obstructive Pulmonary Disease was listed. Pt with history of smoking, arrives with difficulty breathing and cough. Please add diagnosis below the line if you agree. Thank you, SIRI Gant Patient Transport Officer III -Chronic Obstructive Pulmonary Disease -acute exacerbation of COPD -COPD ruled out not my impression MTDD
== END 2021-02-22 14:49 | disposition home or self-care (01) ==
LOC: EC 09:24 → 6NMEDSUR 14:49
PROVIDERS: ADMIT Internal Medicine; ATTEND Internal Medicine
DX: R07.89 Other chest pain (principal); J18.9 Pneumonia, unspecified organism; E78.5 Hyperlipidemia, unspecified; I10 Essential (primary) hypertension; E87.70 Fluid overload, unspecified; R79.89 Other specified abnormal findings of blood chemistry; R73.9 Hyperglycemia, unspecified; F41.9 Anxiety disorder, unspecified; I08.1 Rheumatic disorders of both mitral and tricuspid valves; E66.9 Obesity, unspecified; Z68.38 Body mass index [BMI] 38.0-38.9, adult; Z20.822 Contact with and (suspected) exposure to COVID-19; Z53.29 Procedure and treatment not carried out because of patient's decision for other reasons; Z87.891 Personal history of nicotine dependence; Z79.899 Other long term (current) drug therapy; Z79.1 Long term (current) use of non-steroidal anti-inflammatories (NSAID); Z90.49 Acquired absence of other specified parts of digestive tract; Z82.3 Family history of stroke; Z82.49 Family history of ischemic heart disease and other diseases of the circulatory system; Z80.9 Family history of malignant neoplasm, unspecified
CPT/HCPCS: 96372 ×2; 96374; 96375; 99285; 36415; 94640 ×6; 93005; 85379; 83880; 80053 ×2; 83605; 83735; 84484 ×2; 85025; 85027; 85610; 85730; 81003; 87635; 71046; G0378 ×3; C8929; J2930; J0696; Q9950; J1644 ×2; 93306

== ENCOUNTER → 2021-05-06 | Outpatient (CLI) | payer MEDICARE ==
--- NOTE | 2021-05-07 08:44 | US ---
EXAMINATION TYPE: US venous doppler duplex LE LT DATE OF EXAM: 05/06/2021 5:07 PM COMPARISON: NONE CLINICAL HISTORY: M79.605 Left leg pain. Left leg swelling and cramping x 1 week SIDE PERFORMED: Left TECHNIQUE: The lower extremity deep venous system is examined utilizing real time linear array sonog kaylah with graded compression, doppler sonography and color-flow sonography. VESSELS IMAGED: Common Femoral Vein Deep Femoral Vein Greater Saphenous Vein * Femoral Vein Popliteal Vein Small Saphenous Vein * Proximal Calf Veins (* superficial vessels) Left Leg: Appears negative for DVT IMPRESSION: 1. Left lower extremity ultrasound negative for deep venous thrombosis.
== END | disposition home or self-care (01) ==
LOC: RADUSWWP 16:50
PROVIDERS: ATTEND Family Medicine
DX: M79.605 Pain in left leg (principal)